=== PATIENT | female | born 1945 | race Caucasian/White ===

== ENCOUNTER 2022-04-14 16:38 | Emergency (ER) | payer OTHER ==
[~2022-04-14 16:38] MED LIST: ALPRAZOLAM0.5 MG PO; ASPIRIN EC81 MG PO; D3-5050000 UNIT PO; FLONASE 0.05% N16 GM; HYDROCHLOROTHIA25 MG PO; IMDUR ER TAB 3030 MG PO; NEURONTIN 300300 MG PO; NITROSTAT0.4 MG SL; NORVASC5 MG PO; OMNICEF 300 MG300 MG PO; PROTONIX40 MG PO; TENORMIN 25 MG25 MG PO; ULTRAM50 MG PO; VESICARE5 MG PO; ZOCOR20 MG PO
[2022-04-14 18:04] LABS: HEMOGLOBIN 12.6 gm/dl (12.3-15.3)
[2022-04-14 18:32] LABS: BUN/CREATININE RATIO 21 (0-10)
== END 2022-04-14 21:05 | disposition home or self-care (01) ==
LOC: ER1 16:38
PROVIDERS: Nurse Practitioner
DX: S16.1XXA Strain of muscle, fascia and tendon at neck level, initial encounter (principal); R07.89 Other chest pain; E78.5 Hyperlipidemia, unspecified; I11.9 Hypertensive heart disease without heart failure; Z91.041 Radiographic dye allergy status; V49.40XA Driver injured in collision with unspecified motor vehicles in traffic accident, initial encounter; Y92.410 Unspecified street and highway as the place of occurrence of the external cause
CPT/HCPCS: 71250; 80053; 82550; 82553; 84484; 85025; 93005; 99284